=== PATIENT | male | born 1955 | race African-American/Black ===

== ENCOUNTER 2018-06-05 21:39 | Emergency (ER) | payer SELFPAY ==
[~2018-06-05] VITALS: Ht 175.3 cm; Wt 6.0 kg
[2018-06-05 22:38] VITALS: BP 155/94
== END 2018-06-05 22:41 ==
LOC: ER 21:46
DX: Z02.89 Encounter for other administrative examinations (principal); F12.10 Cannabis abuse, uncomplicated; F15.10 Other stimulant abuse, uncomplicated; Z88.8 Allergy status to other drugs, medicaments and biological substances

== ENCOUNTER 2019-01-12 18:25 | Inpatient (IN) | payer OTHER ==
[~2019-01-12] VITALS: Ht 193 cm; Wt 94.3 kg
[2019-01-12] MEDS ORDERED: HALOPERIDOL LACTATE 5 MG/ML INJ VIAL ONE (18:41)
[2019-01-12] MEDS ORDERED: diphenhdrAMINE HCL 50 MG/1 ML VL ONE (18:41)
[2019-01-12] MEDS ORDERED: LORazepam 2MG/ML-1ML VIAL ONE (18:41)
[2019-01-12] MEDS ORDERED: LORazepam 2MG/ML-1ML VIAL IM ONE (18:45)
[2019-01-12] MEDS ORDERED: HALOPERIDOL LACTATE 5 MG/ML INJ VIAL IM ONE (18:45)
[2019-01-12] MEDS ORDERED: diphenhdrAMINE HCL 50 MG/1 ML VL IV ONE (18:45)
[2019-01-12 19:38] LABS: Basophils # (auto) 0 uL; Basophils % (auto) 0.5 % (0.0-2.0); Eosinophils # (auto) 0.1 uL; Hematocrit 39.6 % (41.0-53.0); Hemoglobin 13.1 g/dL (13.5-17.5); Lymphocytes # (auto) 1.9 uL; Lymphocytes % (auto) 27.2 % (10.0-50.0); Mean Corpuscular Hgb Conc. 33.1 g/dL (32.0-36.0); Mean Corpuscular Volume 90.5 fL (80.0-100.0); Monocytes # (auto) 0.6 uL; Monocytes % (auto) 8.3 % (0.0-12.0); Neutrophils # (auto) 4.4 uL; Nucleated Red Blood Cells % 0.1 %; Platelet Count (auto) 334 10^3/uL (140-450); Red Blood Cells 4.38 10^6/uL (4.5-5.90); Red Cell Distribution Width 14.8 % (11.8-14.3)
[2019-01-12 19:54] LABS: Albumin 3.4 g/dL (3.4-5.0); Anion Gap 8 (5-15); Blood Urea Nitrogen 17 mg/dL (7-18); Calcium 8.8 mg/dL (8.5-10.1); Carbon Dioxide 23 mmol/L (21-32); Chloride 115 mmol/L (98-107); Glucose 149 mg/dL (74-106); Potassium 3.5 mmol/L (3.5-5.1); Sodium 146 mmol/L (136-145)
[2019-01-12 20:02] LABS: Alanine Aminotransferase 27 U/L (16-61); Alkaline Phosphatase 98 U/L (45-117); Aspartate Aminotransferase 11 U/L (15-37); BUN/Creatinine Ratio 16.3; Bilirubin, Total 0.4 mg/dL (0.2-1.0); Blood Alcohol < 3.0 mg/dL (0-5); GFR African American 93 mL/min; GFR Non-African American 77 mL/min; Total Protein 6.7 g/dL (6.4-8.2)
[2019-01-12] MEDS ORDERED: SODIUM CHLORIDE 0.9% 1,000 ML IV ONE (21:15)
[2019-01-12 23:42] LABS: Alcohol, Urine < 3.0 mg/dL (0-5); Amphetamine Screen, Urine POSITIVE (NEGATIVE); Barbiturate Scree,Urine NEGATIVE (NEGATIVE); Benzodiazephine Screen, Urine NEGATIVE (NEGATIVE); Cannabinoid Screen, Urine POSITIVE (NEGATIVE); Cocaine Screen, Urine NEGATIVE (NEGATIVE); Opiate Scree,Urine NEGATIVE (NEGATIVE); Phencyclidine Screen, Urine POSITIVE (NEGATIVE)
[2019-01-13] MEDS ORDERED: diphenhdrAMINE HCL 50 MG/1 ML VL IV PRN (01:00)
[2019-01-13] MEDS ORDERED: LORazepam 2MG/ML-1ML VIAL IV PRN (01:00)
[2019-01-13] MEDS ORDERED: ACETAMINOPHEN 500 MG TAB PO PRN (01:00)
[2019-01-13 01:14] LABS: Urine Amorphous Crystal FEW /hpf (None Seen); Urine Bacteria FEW /hpf (None Seen); Urine Blood Negative /uL (Negative); Urine Specific Gravity 1.028 (1.001-1.035); Urine WBC 2 /hpf (0 - 3)
[2019-01-13 02:45] VITALS: BP 141/94
[2019-01-13] MEDS ORDERED: SODIUM CHLORIDE 0.9% 1,000 ML IV ONE (03:00)
[2019-01-13 05:30] VITALS: BP 148/91
[2019-01-13 08:32] VITALS: BP 171/87
[2019-01-13] MEDS ORDERED: METOPROLOL TARTRATE 25 MG TAB PO ONE (11:00)
[2019-01-13 12:52] VITALS: BP 159/91
[2019-01-13] MEDS ORDERED: cloNIDine HCL 0.1 MG TAB PO PRN (14:00)
[2019-01-13] MEDS ORDERED: THROAT LOZENGES(CEPASTAT) MT ONE (14:00)
[2019-01-13] MEDS ORDERED: SOD CHL 0.45% 1,000 ML IV ONE (14:00)
[2019-01-13] MEDS ORDERED: LISINOPRIL 10 MG TAB PO ONE (14:00)
[2019-01-13] MEDS ORDERED: THROAT LOZENGES(CEPASTAT) MT PRN (14:00)
[2019-01-13 17:00] VITALS: BP 143/82
[2019-01-13] MEDS: HYDROcodone-ACET 5/325MG TAB PO PRN (19:37)
[2019-01-13 21:30] VITALS: BP 124/84
[2019-01-13] MEDS: METOPROLOL TARTRATE 25 MG TAB PO SCH (21:48)
[2019-01-14 04:41] VITALS: BP 159/100
[2019-01-14 04:55] VITALS: BP 128/87
[2019-01-14 07:41] LABS: Calcium 8.2 mg/dL (8.5-10.1); Potassium 3.7 mmol/L (3.5-5.1)
[2019-01-14 07:43] LABS: BUN/Creatinine Ratio 17.4
[2019-01-14 08:10] VITALS: BP 158/94
[2019-01-14] MEDS: HYDROcodone-ACET 5/325MG TAB PO PRN (08:13)
[2019-01-14] MEDS: METOPROLOL TARTRATE 25 MG TAB PO SCH (09:05)
[2019-01-14] MEDS ORDERED: LISINOPRIL 10 MG TAB PO SCH (10:00)
[2019-01-14 11:09] VITALS: BP 141/94
== END 2019-01-14 11:40 | disposition home or self-care (01) | DRG 917 ==
LOC: EDBD 18:25 → ER 18:32 → OVERFLOW 01-13 00:55 → CENTRAL 01-13 03:23
PROVIDERS: ADMIT Nurse Practitioner Family; ATTEND Internal Medicine
DX: T40.7X1A Poisoning by cannabis (derivatives), accidental (unintentional), initial encounter (principal); G92 Toxic encephalopathy; I10 Essential (primary) hypertension; E78.5 Hyperlipidemia, unspecified; S09.90XA Unspecified injury of head, initial encounter; M50.21 Other cervical disc displacement, high cervical region; F19.10 Other psychoactive substance abuse, uncomplicated; T40.991A Poisoning by other psychodysleptics [hallucinogens], accidental (unintentional), initial encounter; X58.XXXA Exposure to other specified factors, initial encounter; Y93.89 Activity, other specified; Y92.89 Other specified places as the place of occurrence of the external cause; Y99.8 Other external cause status; Z78.1 Physical restraint status; Z88.8 Allergy status to other drugs, medicaments and biological substances; Z91.19 Patient's noncompliance with other medical treatment and regimen
CPT/HCPCS: 36415; 36600; 70450; 71045; 72125; 80048; 80053; 80307; 80320; 81001; 82805; 83605; 84484; 85025; 96361; 96372; 96374; G0378

== ENCOUNTER 2019-02-08 22:05 | Inpatient (IN) | payer OTHER | END 2019-02-13 20:10 | disposition left against medical advice (07) | LOC: ICU WEST 02-10 05:08 → TELE-EAST 02-12 20:17 → ICU WEST 02-10 05:16 → TELE 02-09 05:01 → ICU WEST 02-10 05:16 → ER 22:05 | PROC: 5A1945Z Respiratory Ventilation, 24-96 Consecutive Hours (ICD-10-PCS; principal; ~2019-02-08) | PROC: 0BH17EZ Insertion of Endotracheal Airway into Trachea, Via Natural or Artificial Opening (ICD-10-PCS; ~2019-02-08) | PROC: 05H533Z Insertion of Infusion Device into Right Subclavian Vein, Percutaneous Approach (ICD-10-PCS; ~2019-02-08) | PROC: 0BH17EZ Insertion of Endotracheal Airway into Trachea, Via Natural or Artificial Opening (ICD-10-PCS; ~2019-02-08) | DX: I46.9 Cardiac arrest, cause unspecified (principal); J96.00 Acute respiratory failure, unspecified whether with hypoxia or hypercapnia; E87.0 Hyperosmolality and hypernatremia; F19.19 Other psychoactive substance abuse with unspecified psychoactive substance-induced disorder; E66.9 Obesity, unspecified; I10 Essential (primary) hypertension ==

== ENCOUNTER 2022-04-07 15:13 | Emergency (ER) | payer MEDICAID, OTHER ==
[2022-04-07] MEDS ORDERED: NAP500T PO (17:18)
[2022-04-07] MEDS ORDERED: CYCL-837 PO (17:18)
[2022-04-07] MEDS: KETOROLAC TROMETH 60MG/2ML VIAL IM ONE (17:27)
[2022-04-07 17:34] VITALS: BP 147/95
== END 2022-04-07 17:41 | disposition home or self-care (01) ==
LOC: ER 15:13
DX: M54.42 Lumbago with sciatica, left side (principal); K21.9 Gastro-esophageal reflux disease without esophagitis; E78.5 Hyperlipidemia, unspecified; I10 Essential (primary) hypertension; Z88.8 Allergy status to other drugs, medicaments and biological substances
CPT/HCPCS: 72100; 96372; 99283; J1885

== ENCOUNTER 2022-04-24 03:46 | Emergency (ER) | payer MEDICAID ==
[~2022-04-24] VITALS: Ht 175.3 cm; Wt 109.1 kg
[~2022-04-24 03:46] MED LIST: CYCL-837 PO; NAP500T PO
[2022-04-24 07:45] VITALS: BP 132/92
[2022-04-24] MEDS ORDERED: KETOROLAC TROMETH 60MG/2ML VIAL IM ONE (07:45)
[2022-04-24] MEDS ORDERED: NAP500T PO (08:00)
[2022-04-24] MEDS ORDERED: CYCL-837 PO (08:00)
== END 2022-04-24 08:30 | disposition home or self-care (01) ==
LOC: ER 03:46
DX: M17.12 Unilateral primary osteoarthritis, left knee (principal); M54.32 Sciatica, left side; K21.9 Gastro-esophageal reflux disease without esophagitis; E78.5 Hyperlipidemia, unspecified; I10 Essential (primary) hypertension; Z88.8 Allergy status to other drugs, medicaments and biological substances
CPT/HCPCS: 73562; 93971; 96372; 99284; J1885

== ENCOUNTER 2023-09-03 03:45 | Emergency (ER) | payer MEDICARE, MEDICAID ==
[~2023-09-03] VITALS: Ht 175.3 cm; Wt 100.0 kg
[2023-09-03] MEDS ORDERED: KETOROLAC TROMETH 60MG/2ML VIAL IM ONE (05:30)
[2023-09-03] MEDS ORDERED: ACE3T PO (05:34)
[2023-09-03] MEDS ORDERED: CYCL-837 PO (05:34)
[2023-09-03 06:16] VITALS: BP 155/93; PULSE 90; RESP 21; TEMP 98.4; O2SAT 96
== END 2023-09-03 06:21 | disposition home or self-care (01) ==
LOC: ER 03:45
DX: M54.42 Lumbago with sciatica, left side (principal); I10 Essential (primary) hypertension; E78.5 Hyperlipidemia, unspecified; K21.9 Gastro-esophageal reflux disease without esophagitis; G89.29 Other chronic pain; Z79.899 Other long term (current) drug therapy; Z88.8 Allergy status to other drugs, medicaments and biological substances
CPT/HCPCS: 73502; 96372; 99283; J1885

== ENCOUNTER 2024-04-11 02:28 | Emergency (ER) | payer MEDICAID, MEDICARE ==
[~2024-04-11] VITALS: Ht 175.3 cm; Wt 105.0 kg
[~2024-04-11 02:28] MED LIST changes: +ACE3T PO
[2024-04-11 02:57] VITALS: BP 151/91; PULSE 102; RESP 16; TEMP 97.8; O2SAT 97
[2024-04-11] MEDS ORDERED: CEPH500C PO (03:50)
== END 2024-04-11 04:15 | disposition home or self-care (01) ==
LOC: ER 02:28
DX: T16.2XXA Foreign body in left ear, initial encounter (principal); K21.9 Gastro-esophageal reflux disease without esophagitis; E78.5 Hyperlipidemia, unspecified; I10 Essential (primary) hypertension; F12.90 Cannabis use, unspecified, uncomplicated; Z88.8 Allergy status to other drugs, medicaments and biological substances; Z79.1 Long term (current) use of non-steroidal anti-inflammatories (NSAID); Z79.899 Other long term (current) drug therapy; W44.8XXA Other foreign body entering into or through a natural orifice, initial encounter; Y93.89 Activity, other specified; Y92.89 Other specified places as the place of occurrence of the external cause; Y99.8 Other external cause status